=== PATIENT | female | born 1950 | race Hispanic/Latino ===

== ENCOUNTER 2021-08-21 07:29 | Day surgery (SDC) | payer MEDICARE ==
[~2021-08-21] VITALS: Ht 161.3 cm; Wt 96.8 kg
[~2021-08-21 07:29] MED LIST: 0.9%NACL 1000ML 1,000 ML IV ONE; ALBU8.5H8 IH; ALPR0.5T8 PO; CALC-877 PO; CARV6.2579 PO; FLUT16H NASAL; FOLI0.8T22 PO; GABA-529 PO; LEVO125T11 PO; MONT-39 PO; ONDA4TAB4 PO; PANT40TA PO
[2021-08-21 08:04] VITALS: BP 134/46
[2021-08-21] MEDS ORDERED: PROPOFOL 10 MG/ML 20ML VIAL IV ONE (09:44)
[2021-08-21 10:00] VITALS: BP 116/33
[2021-08-21 10:05] VITALS: BP 117/43
[2021-08-21 10:30] VITALS: BP 133/49
== END 2021-08-21 10:30 | disposition home or self-care (01) ==
LOC: DAH 07:29
PROVIDERS: ATTEND Internal Medicine
DX: K74.60 Unspecified cirrhosis of liver (principal); K29.70 Gastritis, unspecified, without bleeding; K25.3 Acute gastric ulcer without hemorrhage or perforation; K28.9 Gastrojejunal ulcer, unspecified as acute or chronic, without hemorrhage or perforation; Z20.822 Contact with and (suspected) exposure to COVID-19
CPT/HCPCS: 36415; 43239; 82948; 84132; 87635; 88305; 88342; A4215 ×2; A4221; A4222; A4223; A4606; A4620; A4657; A4663; C9803; J2704; J7030

== ENCOUNTER 2022-02-24 09:01 | Emergency (ER) | payer MEDICARE ==
[~2022-02-24] VITALS: Ht 160 cm; Wt 97.5 kg
[~2022-02-24 09:01] MED LIST changes: -0.9%NACL 1000ML 1,000 ML IV ONE; +AEC81 PO; +ATOR10TA69 PO; +CALC-1158 PO; -CALC-877 PO; +CARV3.12 PO; -FLUT16H NASAL; -GABA-529 PO; -LEVO125T11 PO; +LEVO137T2 PO; +ONDA-104 PO; -ONDA4TAB4 PO; +SERT-438 PO
[2022-02-24 09:58] LABS: BASOPHILS % (AUTO) 0.5 % (0.0-5.0); EOSINOPHILS % (AUTO) 0.5 % (0.0-8.0); HEMATOCRIT 34.3 % (36-48); LYMPHOCYTES % (AUTO) 14.9 % (21.0-51.0); MEAN CORPUSCULAR HEMOGLOBIN 28.2 pg (27.0-33.0); MONOCYTES % (AUTO) 8.5 % (3.0-13.0); NEUTROPHILS % (AUTO) 75.1 % (40.0-77.0); PLATELET COUNT (AUTO) 138 K/uL (130-400); RED BLOOD CELL COUNT(AUTO) 3.65 MIL/uL (4.00-5.50); RED CELL DISTRIBUTION WIDTH 15.9 % (11.0-15.5); WHITE BLOOD COUNT (AUTO) 7.5 K/uL (4.8-10.8)
[2022-02-24 10:36] LABS: CREATININE 6.1 mg/dL (0.5-1.5); POTASSIUM 4.3 mmol/L (3.5-5.1)
[2022-02-24 10:40] LABS: ALBUMIN 3.8 g/dL (3.5-5.0); BILIRUBIN,TOTAL 0.3 mg/dL (0.2-1.0); MAGNESIUM 1.9 mg/dL (1.80-2.40); TOTAL PROTEIN, SERUM 7.7 g/dL (6.0-8.3)
[2022-02-24 11:19] LABS: APPEARANCE,URINE Clear (CLEAR); BILIRUBIN,URINE Negative (NEGATIVE); COLOR,URINE Dark Yellow (YELLOW); GLUCOSE, URINE (UA) Negative (NEGATIVE); KETONES,URINE Trace mg/dL (NEGATIVE); LEUKOCYTE ESTERASE ,URINE Negative (NEGATIVE); NITRATE,URINE Negative (NEGATIVE); OCCULT BLOOD,URINE Negative (NEGATIVE); PROTEIN,URINE 300 mg/dL (NEGATIVE)
[2022-02-24] MEDS ORDERED: CALCIUM CARB 500MG PO SCH (11:30)
[2022-02-24] MEDS ORDERED: FLUT16H NS (11:37)
[2022-02-24 11:45] LABS: BACTERIA,URINE None Seen /HPF (None Seen); MUCUS,URINE Rare LPF (None Seen); RBC,URINE 0-1 /HPF (0-1); WBC,URINE 0-1 /HPF (0-1)
[2022-02-24] MEDS ORDERED: SULF1TAB42 PO (11:48)
[2022-02-24] MEDS ORDERED: AZEL137S11 NS (11:48)
[2022-02-24] MEDS ORDERED: BUDE10.7 IH (11:48)
[2022-02-24] MEDS ORDERED: DONE10TA43 PO (11:48)
[2022-02-24] MEDS ORDERED: FOLI1TAB85 PO (11:48)
[2022-02-24] MEDS ORDERED: ONDA-104 PO (11:48)
[2022-02-24] MEDS ORDERED: METO25TA6 PO (11:48)
[2022-02-24 12:42] VITALS: BP 118/40
== END 2022-02-24 12:43 | disposition home or self-care (01) ==
LOC: EDH 09:01
DX: E83.51 Hypocalcemia (principal); F41.9 Anxiety disorder, unspecified; J44.9 Chronic obstructive pulmonary disease, unspecified; F03.90 Unspecified dementia, unspecified severity, without behavioral disturbance, psychotic disturbance, mood disturbance, and anxiety; E11.9 Type 2 diabetes mellitus without complications; E78.00 Pure hypercholesterolemia, unspecified; I10 Essential (primary) hypertension; E03.9 Hypothyroidism, unspecified; Z90.89 Acquired absence of other organs; Z90.49 Acquired absence of other specified parts of digestive tract; Z98.890 Other specified postprocedural states; Z79.899 Other long term (current) drug therapy; Z79.82 Long term (current) use of aspirin; Z88.0 Allergy status to penicillin; Z88.2 Allergy status to sulfonamides
CPT/HCPCS: 36415; 80053; 81001; 82330; 83735; 84484; 85025; 93005

== ENCOUNTER 2022-06-13 14:24 | Inpatient (IN) | payer MEDICARE ==
[~2022-06-13] VITALS: Ht 160 cm; Wt 98.9 kg
[~2022-06-13 14:24] MED LIST changes: +ALBU6.7H9 IH; -ALBU8.5H8 IH; -CARV3.12 PO; -CARV6.2579 PO; +FLUT16H NS; +FOLI1TAB85 PO; +GABA-529 PO; +INSU100V12 SQ; +METO25TA6 PO; +SUCR500T PO
[2022-06-13 15:13] LABS: HEMATOCRIT 42.1 % (36-48); MEAN CORPUSCULAR HEMOGLOBIN 27.9 pg (27.0-33.0); MEAN CORPUSCULAR HGB CONC 30.6 g/dL (32.0-36.0); MEAN CORPUSCULAR VOLUME 91.1 fL (79-99); PLATELET COUNT (AUTO) 154 K/uL (130-400); RED BLOOD CELL COUNT(AUTO) 4.62 MIL/uL (4.00-5.50); RED CELL DISTRIBUTION WIDTH 15.1 % (11.0-15.5); WHITE BLOOD COUNT (AUTO) 8.5 K/uL (4.8-10.8)
[2022-06-13 15:39] LABS: CREATININE 3.5 mg/dL (0.5-1.5); POTASSIUM 3.8 mmol/L (3.5-5.1)
[2022-06-13 15:43] LABS: ALBUMIN 3.9 g/dL (3.5-5.0); TOTAL PROTEIN, SERUM 9.2 g/dL (6.0-8.3)
[2022-06-13 15:58] LABS: BASOPHILS % (AUTO) 1.1 % (0.0-5.0); EOSINOPHILS % (AUTO) 1.6 % (0.0-8.0); LYMPHOCYTES % (AUTO) 16.4 % (21.0-51.0); MONOCYTES % (AUTO) 10.2 % (3.0-13.0)
[2022-06-13] MEDS ORDERED: BISACODYL 5 MG TABLET.DR PO PRN (17:30)
[2022-06-13] MEDS ORDERED: ACETAMINOPHEN 325 MG TAB PO PRN ×2 (17:30)
[2022-06-13] MEDS ORDERED: ONDANSETRON 4MG INJ IV PRN (17:30)
[2022-06-13] MEDS ORDERED: MIDODRINE HCL 5 MG TABLET PO SCH (18:00)
[2022-06-13 18:19] LABS: THYROID STIMULATING HORMONE 2.51 uIU/mL (0.36-3.74)
[2022-06-13] MEDS: HEPARIN 5,000 UNIT VIAL SQ SCH (18:30)
[2022-06-13] MEDS: FAMOTIDINE 20MG VIAL IV SCH (18:30)
[2022-06-13] MEDS ORDERED: ASPIRIN 81MG CHEW TAB PO ONE (19:00)
[2022-06-13] MEDS ORDERED: ATORVASTATIN 40 MG TABLET PO ONE (19:00)
[2022-06-13 20:03] VITALS: BP 135/51
[2022-06-13] MEDS ORDERED: SERT-440 PO (20:47)
[2022-06-13] MEDS ORDERED: METO5 PO (21:13)
[2022-06-13] MEDS ORDERED: INSU100I15 SQ (21:18)
[2022-06-13 23:37] VITALS: BP 126/63
[2022-06-14] VITALS (20 sets, daily range): BP systolic 109–146; BP diastolic 47–73
[2022-06-14] MEDS ORDERED: ALPRAZOLAM 0.25 MG TABLET PO SCH
[2022-06-14 04:17] LABS: BASOPHILS % (AUTO) 0.9 % (0.0-5.0); EOSINOPHILS % (AUTO) 2.4 % (0.0-8.0); HEMATOCRIT 38.3 % (36-48); LYMPHOCYTES % (AUTO) 25.4 % (21.0-51.0); MEAN CORPUSCULAR HEMOGLOBIN 27.4 pg (27.0-33.0); MEAN CORPUSCULAR HGB CONC 29.8 g/dL (32.0-36.0); MEAN CORPUSCULAR VOLUME 92.1 fL (79-99); MONOCYTES % (AUTO) 10.1 % (3.0-13.0); NEUTROPHILS % (AUTO) 60.6 % (40.0-77.0); PLATELET COUNT (AUTO) 148 K/uL (130-400); RED BLOOD CELL COUNT(AUTO) 4.16 MIL/uL (4.00-5.50); RED CELL DISTRIBUTION WIDTH 15.1 % (11.0-15.5); WHITE BLOOD COUNT (AUTO) 9.5 K/uL (4.8-10.8)
[2022-06-14 04:52] LABS: HEMOGLOBIN A1C 10.3 % (4.0-6.0)
[2022-06-14 05:00] LABS: CREATININE 4.9 mg/dL (0.5-1.5); POTASSIUM 3.8 mmol/L (3.5-5.1)
[2022-06-14] MEDS: HEPARIN 5,000 UNIT VIAL SQ SCH ×2 (06:40→18:00)
[2022-06-14] MEDS ORDERED: LEVOTHYROXINE 112 MCG TABLET PO SCH (07:30)
[2022-06-14] MEDS ORDERED: LEVOTHYROXINE 25 MCG TABLET PO SCH (07:30)
[2022-06-14] MEDS: ALPRAZOLAM 0.25 MG TABLET PO SCH ×2 (08:30→20:45)
[2022-06-14] MEDS: FAMOTIDINE 20MG VIAL IV SCH (08:31)
[2022-06-14] MEDS: METOCLOPRAMIDE 5 MG TABLET PO SCH ×2 (08:31→20:45)
[2022-06-14] MEDS: METOPROLOL TARTRATE 25 MG TAB PO SCH ×2 (08:37→20:46)
[2022-06-14] MEDS ORDERED: ASPIRIN 81MG CHEW TAB PO SCH (09:00)
[2022-06-14] MEDS ORDERED: Vitamin B Complex/Vit C/Folic Acid PO SCH (09:00)
[2022-06-14] MEDS ORDERED: CA 600MG+VIT D 400 UNIT TAB 1 TAB TABLET PO SCH (09:00)
[2022-06-14] MEDS ORDERED: MONTELUKAST SODIUM 10 MG TAB PO SCH (09:00)
[2022-06-14] MEDS ORDERED: INSULIN GLARGINE 100 UNITS/ML 10 ML VIAL SQ SCH (09:00)
[2022-06-14] MEDS ORDERED: MIDODRINE HCL 5 MG TABLET PO SCH (12:00)
[2022-06-14] MEDS: INSULIN HUMULIN R 100 UNIT/ML 3ML SQ SCH ×2 (16:03→20:47)
[2022-06-14] MEDS ORDERED: Midodrine Hcl PO (20:17)
[2022-06-14] MEDS ORDERED: ATOR40TA69 PO (20:17)
[2022-06-14] MEDS ORDERED: SERTRALINE HCL 50 MG TABLET PO SCH ×2 (21:00)
[2022-06-14] MEDS ORDERED: ATORVASTATIN 40 MG TABLET PO SCH (21:00)
[2022-06-14] MEDS ORDERED: GABAPENTIN 100 MG CAPSULE PO SCH (21:00)
== END 2022-06-14 21:45 | disposition home or self-care (01) | DRG 280 ==
LOC: EDH 14:24 → EDHIP 17:16 → 2DH 19:37
PROVIDERS: ADMIT Internal Medicine; ATTEND Internal Medicine
PROC: 5A1D70Z Performance of Urinary Filtration, Intermittent, Less than 6 Hours Per Day (ICD-10-PCS; principal; 2022-06-14)
DX: I95.3 Hypotension of hemodialysis (principal); J18.9 Pneumonia, unspecified organism; I21.4 Non-ST elevation (NSTEMI) myocardial infarction; N18.6 End stage renal disease; I12.0 Hypertensive chronic kidney disease with stage 5 chronic kidney disease or end stage renal disease; J44.0 Chronic obstructive pulmonary disease with (acute) lower respiratory infection; N25.81 Secondary hyperparathyroidism of renal origin; Z99.2 Dependence on renal dialysis; E83.51 Hypocalcemia; D63.8 Anemia in other chronic diseases classified elsewhere; E11.22 Type 2 diabetes mellitus with diabetic chronic kidney disease; E78.00 Pure hypercholesterolemia, unspecified; F17.210 Nicotine dependence, cigarettes, uncomplicated; I25.119 Atherosclerotic heart disease of native coronary artery with unspecified angina pectoris; I25.2 Old myocardial infarction; I48.0 Paroxysmal atrial fibrillation; E89.0 Postprocedural hypothyroidism; K74.60 Unspecified cirrhosis of liver; M32.9 Systemic lupus erythematosus, unspecified; Z66 Do not resuscitate; Z82.49 Family history of ischemic heart disease and other diseases of the circulatory system; Z83.3 Family history of diabetes mellitus; Z86.73 Personal history of transient ischemic attack (TIA), and cerebral infarction without residual deficits; Z88.0 Allergy status to penicillin; Z88.5 Allergy status to narcotic agent; Z90.710 Acquired absence of both cervix and uterus; Z95.1 Presence of aortocoronary bypass graft; Z95.5 Presence of coronary angioplasty implant and graft; Z99.81 Dependence on supplemental oxygen
CPT/HCPCS: 36415; 71045; 76705; 80048; 80053; 80061; 82140; 82550; 82948; 83036; 83605; 83874; 84443; 84484; 85025; 86704; 86706; 90935; 93005; G0378; J1644; J1815; J3490

== ENCOUNTER 2022-10-16 23:03 | Inpatient (IN) | payer MEDICARE ==
[~2022-10-16] VITALS: Ht 160 cm; Wt 98.9 kg
[~2022-10-16 23:03] MED LIST changes: +ALBU6.7H14 IH; -ALBU6.7H9 IH; +ALBUHFA IH; -ATOR10TA69 PO; +ATOR40TA69 PO; +AZIT250T9 PO; +BENZ-70 PO; +BUDE10.7 IH; +CALC667C10 PO; -FLUT16H NS; -FOLI0.8T22 PO; +INSU100I21 SQ; +INSU100I3 SQ; -INSU100V12 SQ; +Midodrine Hcl PO; +NITR0.4T50 SL; -PANT40TA PO; -SERT-438 PO; +SERT-440 PO; -SUCR500T PO
[2022-10-16 23:40] LABS: BASOPHILS % (AUTO) 0.2 % (0.0-5.0); EOSINOPHILS % (AUTO) 0.2 % (0.0-8.0); HEMATOCRIT 33.9 % (36-48); LYMPHOCYTES % (AUTO) 7.8 % (21.0-51.0); MEAN CORPUSCULAR HEMOGLOBIN 28.4 pg (27.0-33.0); MEAN CORPUSCULAR VOLUME 91.6 fL (79-99); MONOCYTES % (AUTO) 8.7 % (3.0-13.0); NEUTROPHILS % (AUTO) 81.9 % (40.0-77.0); PLATELET COUNT (AUTO) 204 K/uL (130-400); RED CELL DISTRIBUTION WIDTH 15.1 % (11.0-15.5)
[2022-10-16] MEDS ORDERED: ALBUTEROL 0.083% 2.5 MG/3 ML INH IH STA (23:43)
[2022-10-16] MEDS ORDERED: SOLU-MEDROL 125MG VIAL IVP STA (23:49)
[2022-10-16 23:58] LABS: CREATININE 4.2 mg/dL (0.5-1.5); POTASSIUM 3.6 mmol/L (3.5-5.1)
[2022-10-17] MEDS ORDERED: IPRATROPIUM 0.5 MG/2.5 ML INH IH ONE
[2022-10-17 00:11] LABS: ALBUMIN 3.3 g/dL (3.5-5.0)
[2022-10-17] MEDS ORDERED: ACETAMINOPHEN 325 MG TAB PO ONE (02:00)
[2022-10-17] MEDS ORDERED: ONDANSETRON 4MG INJ IV PRN (03:30)
[2022-10-17] MEDS ORDERED: SOLU-MEDROL 125MG VIAL IV SCH (03:30)
[2022-10-17] MEDS ORDERED: ACETAMINOPHEN 325 MG TAB PO PRN ×2 (03:30)
[2022-10-17] MEDS ORDERED: LACTULOSE 20 GM/30 ML UDCUP PO PRN (03:30)
[2022-10-17] MEDS: AZITHROMYCIN 500MG+NS 250ML IVPB SCH (05:12)
[2022-10-17] MEDS ORDERED: ACETYLCYSTEINE 10% 100MG/ML 4ML VIAL ONE (06:27)
[2022-10-17] MEDS: IPRATROPIUM/ALBUTEROL SULFATE 3 ML SOLUTION IH SCH ×4 (06:29→23:05)
[2022-10-17] MEDS ORDERED: VANCOMYCIN PROTOCOL PER PHARMACY IV SCH (07:30)
[2022-10-17] MEDS ORDERED: SOLU-MEDROL 40MG VIAL IVP SCH (07:30)
[2022-10-17] MEDS ORDERED: VANCOMYCIN 1G/250ML KIT 250 ML IV SCH (07:30)
[2022-10-17] MEDS ORDERED: VANCOMYCIN PROTOCOL PER PHARMACY IV PRN (07:30)
[2022-10-17 07:53] LABS: ABG BASE EXCESS -1.1 mmol/L (-2.0-3.0); ABG HCO3 26.5 mmol/L (21.0-28.0); ABG OXYGEN SATURATION 97.6 % (95.0-99.0); ABG PCO2 56 mmHg (32-45)
[2022-10-17 08:27] LABS: % IRON SATURATION 9.5 % (22-44); RETICULOCYTE % (AUTO) 2.13 % (0.42-2.23)
[2022-10-17] MEDS: MEROPENEM 500 MG VIAL IV SCH ×3 (08:33→23:01)
[2022-10-17] MEDS: INSULIN HUMULIN R 100 UNIT/ML 3ML SQ SCH ×6 (08:33→20:23)
[2022-10-17] MEDS: FAMOTIDINE 20MG TAB PO SCH (08:58)
[2022-10-17] MEDS ORDERED: ACETYLCYSTEINE 10% 100MG/ML 4ML VIAL IH SCH (09:00)
[2022-10-17 09:35] VITALS: BP 151/63
[2022-10-17 12:00] VITALS: BP 136/68
[2022-10-17 16:00] VITALS: BP 130/55
[2022-10-17] MEDS: SOLU-MEDROL 40MG VIAL IVP SCH ×2 (16:09→23:01)
[2022-10-17] MEDS ORDERED: ALPRAZOLAM 0.5 MG TABLET PO PRN (16:30)
[2022-10-17] MEDS ORDERED: INSULIN HUMULIN R 100 UNIT/ML 3ML SQ SCH (17:00)
[2022-10-17] MEDS: CALCIUM AC 667MG CAP PO SCH (17:00)
[2022-10-17] MEDS: ACETYLCYSTEINE 10% 100MG/ML 4ML VIAL IH SCH (19:09)
[2022-10-17 20:00] VITALS: BP 125/67
[2022-10-17] MEDS: ATORVASTATIN 40 MG TABLET PO SCH (20:16)
[2022-10-17] MEDS: BENZONATATE 100 MG CAPSULE PO SCH (20:17)
[2022-10-17] MEDS: SERTRALINE HCL 50 MG TABLET PO SCH (20:17)
[2022-10-17] MEDS ORDERED: MONTELUKAST SODIUM 10 MG TAB ONE (20:18)
[2022-10-17] MEDS ORDERED: ALPRAZOLAM 0.25 MG TABLET ONE (20:20)
[2022-10-17] MEDS: INSULIN GLARGINE 100 UNITS/ML 10 ML VIAL SQ SCH (20:23)
[2022-10-17] MEDS ORDERED: INSULIN GLARGINE 100 UNITS/ML 10 ML VIAL SQ SCH (21:00)
[2022-10-17 23:20] LABS: APPEARANCE,URINE CLEAR (CLEAR); BILIRUBIN,URINE 0.5 mg/dL (NEGATIVE); COLOR,URINE YELLOW (YELLOW); GLUCOSE, URINE (UA) 50 mg/dL (NEGATIVE); KETONES,URINE NEGATIVE (NEGATIVE); LEUKOCYTE ESTERASE ,URINE 250 Leu/uL (NEGATIVE); NITRATE,URINE NEGATIVE (NEGATIVE); OCCULT BLOOD,URINE NEGATIVE (NEGATIVE); PROTEIN,URINE 50 mg/dL (NEGATIVE); UROBILINOGEN,URINE 0.2 mg/dL (0.2-1.0)
[2022-10-17 23:24] LABS: MUCUS,URINE RARE LPF (None Seen); SQUAMOUS EPITHELIAL CELL,UR MOD /HPF (0-2)
[2022-10-18] VITALS (21 sets, daily range): BP systolic 94–150; BP diastolic 60–82
[2022-10-18 00:26] LABS: HEPATITIS B SURFACE ANTIGEN Non-Reactive (Nonreactive)
[2022-10-18] MEDS: AZITHROMYCIN 500MG+NS 250ML IVPB SCH (03:44)
[2022-10-18 05:12] LABS: BASOPHILS % (AUTO) 0.1 % (0.0-5.0); HEMATOCRIT 30.8 % (36-48); LYMPHOCYTES % (AUTO) 5.2 % (21.0-51.0); MEAN CORPUSCULAR HEMOGLOBIN 28.4 pg (27.0-33.0); MEAN CORPUSCULAR HGB CONC 31.2 g/dL (32.0-36.0); MEAN CORPUSCULAR VOLUME 91.1 fL (79-99); MONOCYTES % (AUTO) 5.5 % (3.0-13.0); NEUTROPHILS % (AUTO) 87.3 % (40.0-77.0); PLATELET COUNT (AUTO) 186 K/uL (130-400); RED BLOOD CELL COUNT(AUTO) 3.38 MIL/uL (4.00-5.50); WHITE BLOOD COUNT (AUTO) 15.9 K/uL (4.8-10.8)
[2022-10-18 05:34] LABS: MAGNESIUM 2.1 mg/dL (1.80-2.40); POTASSIUM 5.1 mmol/L (3.5-5.1); THYROID STIMULATING HORMONE 0.9 uIU/mL (0.36-3.74)
[2022-10-18] MEDS: LEVOTHYROXINE 25 MCG TABLET PO SCH (06:16)
[2022-10-18] MEDS: LEVOTHYROXINE 112 MCG TABLET PO SCH (06:16)
[2022-10-18] MEDS: MEROPENEM 500 MG VIAL IV SCH ×3 (06:17→22:43)
[2022-10-18] MEDS: SOLU-MEDROL 40MG VIAL IVP SCH ×3 (06:17→19:50)
[2022-10-18] MEDS: CALCIUM AC 667MG CAP PO SCH ×3 (06:18→16:30)
[2022-10-18] MEDS: INSULIN HUMULIN R 100 UNIT/ML 3ML SQ SCH ×7 (06:30→21:20)
[2022-10-18] MEDS: IPRATROPIUM/ALBUTEROL SULFATE 3 ML SOLUTION IH SCH ×4 (06:31→23:04)
[2022-10-18] MEDS: ACETYLCYSTEINE 10% 100MG/ML 4ML VIAL IH SCH ×2 (06:32→18:31)
[2022-10-18 07:34] LABS: ABG BASE EXCESS -1.3 mmol/L (-2.0-3.0); ABG OXYGEN SATURATION 96.5 % (95.0-99.0); ABG PCO2 48 mmHg (32-45)
[2022-10-18] MEDS: ASPIRIN 81 MG EC TAB PO SCH (09:10)
[2022-10-18] MEDS: Vitamin B Complex/Vit C/Folic Acid PO SCH (09:10)
[2022-10-18] MEDS: MONTELUKAST SODIUM 10 MG TAB PO SCH (09:10)
[2022-10-18] MEDS: FAMOTIDINE 20MG TAB PO SCH (09:10)
[2022-10-18] MEDS: BENZONATATE 100 MG CAPSULE PO SCH ×3 (09:10→19:51)
[2022-10-18] MEDS: MIDODRINE HCL 5 MG TABLET PO SCH ×3 (09:46→19:51)
[2022-10-18] MEDS: EPOETIN ALFA-EPBX (NON-ESRD) 10,000 UNIT/ML VIAL SQ SCH (13:51)
[2022-10-18] MEDS ORDERED: HEPARIN 5,000 UNIT VIAL SQ SCH (19:00)
[2022-10-18] MEDS: ATORVASTATIN 40 MG TABLET PO SCH (19:51)
[2022-10-18] MEDS: SERTRALINE HCL 50 MG TABLET PO SCH (19:52)
[2022-10-18] MEDS: INSULIN GLARGINE 100 UNITS/ML 10 ML VIAL SQ SCH (21:21)
[2022-10-18] MEDS ORDERED: ALPRAZOLAM 0.25 MG TABLET ONE (22:19)
[2022-10-19] VITALS (21 sets, daily range): BP systolic 114–154; BP diastolic 59–87
[2022-10-19] MEDS ORDERED: MEROPENEM 1 GM VIAL IVPB SCH (02:30)
[2022-10-19] MEDS: AZITHROMYCIN 500MG+NS 250ML IVPB SCH (04:06)
[2022-10-19 05:16] LABS: BASOPHILS % (AUTO) 0.1 % (0.0-5.0); HEMATOCRIT 32.9 % (36-48); LYMPHOCYTES % (AUTO) 5.1 % (21.0-51.0); MEAN CORPUSCULAR HEMOGLOBIN 28.1 pg (27.0-33.0); MEAN CORPUSCULAR HGB CONC 30.7 g/dL (32.0-36.0); MEAN CORPUSCULAR VOLUME 91.6 fL (79-99); MONOCYTES % (AUTO) 5.4 % (3.0-13.0); NEUTROPHILS % (AUTO) 86.7 % (40.0-77.0); PLATELET COUNT (AUTO) 245 K/uL (130-400); RED BLOOD CELL COUNT(AUTO) 3.59 MIL/uL (4.00-5.50); WHITE BLOOD COUNT (AUTO) 18.5 K/uL (4.8-10.8)
[2022-10-19 05:35] LABS: INR 1.06 (0.85-1.15); PROTHROMBIN TIME 11.5 SEC (9.6-11.6)
[2022-10-19 05:47] LABS: B-TYPE NATRIURETIC PEPTIDE 678 pg/mL (0-100)
[2022-10-19 05:55] LABS: CREATININE 5.5 mg/dL (0.5-1.5); MAGNESIUM 2.2 mg/dL (1.80-2.40); PHOSPHORUS 6.6 mg/dL (2.5-4.9); POTASSIUM 4.4 mmol/L (3.5-5.1)
[2022-10-19] MEDS: INSULIN HUMULIN R 100 UNIT/ML 3ML SQ SCH ×7 (06:16→21:04)
[2022-10-19] MEDS: ACETYLCYSTEINE 10% 100MG/ML 4ML VIAL IH SCH ×2 (06:35→18:54)
[2022-10-19] MEDS: IPRATROPIUM/ALBUTEROL SULFATE 3 ML SOLUTION IH SCH ×4 (06:35→23:06)
[2022-10-19] MEDS: CALCIUM AC 667MG CAP PO SCH ×3 (06:41→16:55)
[2022-10-19] MEDS: LEVOTHYROXINE 112 MCG TABLET PO SCH (06:41)
[2022-10-19] MEDS: LEVOTHYROXINE 25 MCG TABLET PO SCH (06:41)
[2022-10-19] MEDS: MONTELUKAST SODIUM 10 MG TAB PO SCH (09:15)
[2022-10-19] MEDS: Vitamin B Complex/Vit C/Folic Acid PO SCH (09:15)
[2022-10-19] MEDS: ASPIRIN 81 MG EC TAB PO SCH (09:15)
[2022-10-19] MEDS: FAMOTIDINE 20MG TAB PO SCH (09:16)
[2022-10-19] MEDS: BENZONATATE 100 MG CAPSULE PO SCH ×3 (09:16→20:58)
[2022-10-19] MEDS: SOLU-MEDROL 40MG VIAL IVP SCH ×2 (09:17→20:58)
[2022-10-19] MEDS: MIDODRINE HCL 5 MG TABLET PO SCH ×3 (09:18→21:00)
[2022-10-19] MEDS: MEROPENEM 1 GM VIAL IVPB SCH (13:30)
[2022-10-19] MEDS: HEPARIN 5,000 UNIT VIAL SQ SCH ×2 (13:31→21:03)
[2022-10-19] MEDS: GABAPENTIN 300 MG CAPSULE PO SCH (13:38)
[2022-10-19] MEDS: ATORVASTATIN 40 MG TABLET PO SCH (20:58)
[2022-10-19] MEDS: SERTRALINE HCL 50 MG TABLET PO SCH (20:58)
[2022-10-19] MEDS: INSULIN GLARGINE 100 UNITS/ML 10 ML VIAL SQ SCH (21:04)
[2022-10-20 04:06] VITALS: BP 136/60
[2022-10-20 05:08] LABS: BASOPHILS % (AUTO) 0.2 % (0.0-5.0); HEMATOCRIT 34.3 % (36-48); MEAN CORPUSCULAR HGB CONC 30.3 g/dL (32.0-36.0); MEAN CORPUSCULAR VOLUME 92.5 fL (79-99); MONOCYTES % (AUTO) 4.3 % (3.0-13.0); NEUTROPHILS % (AUTO) 85.5 % (40.0-77.0); PLATELET COUNT (AUTO) 237 K/uL (130-400); RED BLOOD CELL COUNT(AUTO) 3.71 MIL/uL (4.00-5.50); RED CELL DISTRIBUTION WIDTH 14.8 % (11.0-15.5); WHITE BLOOD COUNT (AUTO) 17.4 K/uL (4.8-10.8)
[2022-10-20 05:34] LABS: CREATININE 5.1 mg/dL (0.5-1.5)
[2022-10-20] MEDS: IPRATROPIUM/ALBUTEROL SULFATE 3 ML SOLUTION IH SCH ×4 (06:50→23:29)
[2022-10-20] MEDS: ACETYLCYSTEINE 10% 100MG/ML 4ML VIAL IH SCH ×2 (06:57→19:14)
[2022-10-20 07:00] VITALS: BP 147/74
[2022-10-20] MEDS: AZITHROMYCIN 500MG+NS 250ML IVPB SCH (07:00)
[2022-10-20] MEDS: SOLU-MEDROL 40MG VIAL IVP SCH ×2 (07:56→20:59)
[2022-10-20] MEDS: INSULIN HUMULIN R 100 UNIT/ML 3ML SQ SCH ×7 (08:15→21:00)
[2022-10-20] MEDS: LEVOTHYROXINE 112 MCG TABLET PO SCH (08:16)
[2022-10-20] MEDS: LEVOTHYROXINE 25 MCG TABLET PO SCH (08:16)
[2022-10-20] MEDS: CALCIUM AC 667MG CAP PO SCH ×3 (08:24→16:46)
[2022-10-20] MEDS: MONTELUKAST SODIUM 10 MG TAB PO SCH (08:24)
[2022-10-20] MEDS: ASPIRIN 81 MG EC TAB PO SCH (08:24)
[2022-10-20] MEDS: Vitamin B Complex/Vit C/Folic Acid PO SCH (08:24)
[2022-10-20] MEDS: FAMOTIDINE 20MG TAB PO SCH (08:24)
[2022-10-20] MEDS: MEROPENEM 1 GM VIAL IVPB SCH (08:25)
[2022-10-20] MEDS: MIDODRINE HCL 5 MG TABLET PO SCH ×4 (08:26→21:01)
[2022-10-20] MEDS ORDERED: PREDNISONE 20 MG TABLET PO ONE (09:00)
[2022-10-20] MEDS: BENZONATATE 100 MG CAPSULE PO SCH ×3 (09:19→21:02)
[2022-10-20] MEDS: HEPARIN 5,000 UNIT VIAL SQ SCH ×2 (09:51→21:03)
[2022-10-20 12:00] VITALS: BP 123/81
[2022-10-20] MEDS: GABAPENTIN 300 MG CAPSULE PO SCH (14:43)
[2022-10-20 16:00] VITALS: BP 132/91
[2022-10-20 19:51] VITALS: BP 139/54
[2022-10-20] MEDS: AZITHROMYCIN 250 MG TABLET PO SCH (21:02)
[2022-10-20] MEDS: SERTRALINE HCL 50 MG TABLET PO SCH (21:02)
[2022-10-20] MEDS: ATORVASTATIN 40 MG TABLET PO SCH (21:02)
[2022-10-20] MEDS: METOPROLOL TARTRATE 25 MG TAB PO SCH (21:02)
[2022-10-20] MEDS: INSULIN GLARGINE 100 UNITS/ML 10 ML VIAL SQ SCH (21:07)
[2022-10-21] VITALS (21 sets, daily range): BP systolic 119–145; BP diastolic 59–78
[2022-10-21] MEDS: INSULIN HUMULIN R 100 UNIT/ML 3ML SQ SCH ×6 (06:26→16:27)
[2022-10-21] MEDS: LEVOTHYROXINE 25 MCG TABLET PO SCH (06:36)
[2022-10-21] MEDS: CALCIUM AC 667MG CAP PO SCH ×3 (06:36→16:20)
[2022-10-21] MEDS: LEVOTHYROXINE 112 MCG TABLET PO SCH (06:37)
[2022-10-21] MEDS: IPRATROPIUM/ALBUTEROL SULFATE 3 ML SOLUTION IH SCH ×2 (06:43→12:09)
[2022-10-21] MEDS: ACETYLCYSTEINE 10% 100MG/ML 4ML VIAL IH SCH (06:44)
[2022-10-21] MEDS: MIDODRINE HCL 5 MG TABLET PO SCH ×2 (07:28→08:07)
[2022-10-21] MEDS: HEPARIN 5,000 UNIT VIAL SQ SCH (07:48)
[2022-10-21] MEDS: Vitamin B Complex/Vit C/Folic Acid PO SCH (07:54)
[2022-10-21] MEDS: MEROPENEM 1 GM VIAL IVPB SCH (07:54)
[2022-10-21] MEDS: ASPIRIN 81 MG EC TAB PO SCH (07:55)
[2022-10-21] MEDS: FAMOTIDINE 20MG TAB PO SCH (07:55)
[2022-10-21] MEDS: METOPROLOL TARTRATE 25 MG TAB PO SCH (07:55)
[2022-10-21] MEDS: MONTELUKAST SODIUM 10 MG TAB PO SCH (07:55)
[2022-10-21] MEDS: EPOETIN ALFA-EPBX (NON-ESRD) 10,000 UNIT/ML VIAL SQ SCH (08:06)
[2022-10-21] MEDS: BENZONATATE 100 MG CAPSULE PO SCH ×2 (08:07→14:26)
[2022-10-21] MEDS ORDERED: PREDNISONE 20 MG TABLET PO ONE (09:00)
[2022-10-21] MEDS: GABAPENTIN 300 MG CAPSULE PO SCH (14:27)
[2022-10-21] MEDS ORDERED: AZIT250T PO (14:30)
[2022-10-21] MEDS: AZITHROMYCIN 250 MG TABLET PO SCH (16:20)
[2022-10-24] MEDS ORDERED: VANCOMYCIN 1G/250ML KIT 250 ML IV SCH (09:00)
== END 2022-10-21 17:00 | disposition home or self-care (01) | DRG 193 ==
LOC: EDH 23:03 → EDHIP 10-17 03:24 → 4DH 10-17 09:27
PROVIDERS: ADMIT Internal Medicine; ATTEND Internal Medicine
DX: J18.9 Pneumonia, unspecified organism (principal); I50.41 Acute combined systolic (congestive) and diastolic (congestive) heart failure; J96.21 Acute and chronic respiratory failure with hypoxia; N18.6 End stage renal disease; J44.1 Chronic obstructive pulmonary disease with (acute) exacerbation; I13.2 Hypertensive heart and chronic kidney disease with heart failure and with stage 5 chronic kidney disease, or end stage renal disease; Z99.2 Dependence on renal dialysis; E03.9 Hypothyroidism, unspecified; K74.60 Unspecified cirrhosis of liver; Z87.891 Personal history of nicotine dependence
CPT/HCPCS: 36415; 36600; 71045; 80048; 80053; 81001; 82550; 82607; 82728; 82746; 82803; 82948; 83540; 83550; 83605; 83735; 83874; 83880; 83930; 83935; 84100; 84132; 84145; 84443; 84484; 85025; 85045; 85610; 86706; 86738; 87040; 87071; 87205; 87340; 87449; 87635; 87804; 90935; 93005; 93970; 94640; 94664; 97039; 99291; C9803; G0378; J0456; J1644; J1815; J2185; J2920; J2930; J3370; J7608